=== PATIENT | female | born 1945 | race Caucasian/White ===

== ENCOUNTER → 2024-03-03 09:20 | Outpatient (REF) | payer MEDICARE, OTHER, SELFPAY ==
[2024-03-03 12:36] LABS: % Basophils 0.6 % (0-2); % Eosinophils 4.3 % (0-6); % Immature Granulocytes 0.2 % (0-0.5); % Lymphocytes 23.5 % (20.5-51.1); % Monocytes 5.9 % (1.7-9.3); % Neutrophils 65.5 % (42.2-75.2); Absolute Basophils 0.1 10^3/uL (0-0.2); Absolute Eosinophils 0.4 10^3/uL (0-0.7); Absolute Lymphocytes 2.1 10^3/uL (1.2-3.4); Absolute Monocytes 0.5 10^3/uL (0.1-0.6); Absolute Neutrophils 5.9 10^3/uL (1.4-6.5); Hematocrit 47.1 % (37.0-47.0); Mean Corp Hgb Conc. 31.8 g/dL (33.0-37.0); Mean Corpuscular Hgb 30.6 pg (27.0-31.0); Mean Corpuscular Volume 96.1 fL (81.0-99.0); Mean Platelet Volume 9.8 fL (7.4-10.4); Nucleated Red Blood Cells % 0 %; Platelet Count 248 10^3/uL (130-400); Red Cell Dist. Width 13.6 % (11.5-14.5)
[2024-03-03 13:02] LABS: ALT (SGPT) 26 U/L (0-35); AST (SGOT) 31 U/L (14-36); Albumin 4.3 g/dl (3.5-5.0); Alkaline Phosphatase 102 U/L (38-126); Blood Urea Nitrogen 28 mg/dl (7-17); Calcium 9.5 mg/dl (8.4-10.2); Carbon Dioxide 26 mmol/L (22-30); Chloride 104 mmol/L (98-107); Glucose 144 mg/dl (70-99); HDL Cholesterol 54 mg/dl; LDL Cholesterol, Calculated 65 mg/dl; Phosphorus 3.7 mg/dl (2.5-4.5); Potassium 4.4 mmol/L (3.5-5.1); Sodium 137 mmol/L (135-145); Total Bilirubin 0.5 mg/dl (0.2-1.3); Total Cholesterol 149 mg/dl (50-199); Total Protein 7.4 g/dl (6.3-8.2); Triglyceride 150 mg/dl (10-149); Uric Acid 5.3 mg/dl (2.5-6.2); Very Low Density Lipoprotein 30 mg/dl (0-30); eGFR 46.05
[2024-03-03 14:25] LABS: Glycohemoglobin (HgbA1c) 6.6 % (4.0-5.6)
[2024-03-03 16:14] LABS: Protein/creatinine Ratio 0.1; Urine Protein 10 mg/dl
[2024-03-03 16:20] LABS: Microalbumin, Random Urine <0.6 mg/dl (0.6-1.7)
[2024-03-06 08:58] LABS: Intact PTH 236.6 pg/ml (13.6-85.8)
[2024-03-07 00:21] LABS: 24 Hour Urine Total Volume Random mL; Urine Collection Length Random hr; Urine Free Kappa Light Chains 21.97 mg/L (0.00-32.90); Urine Free Lambda Light Chains 2.61 mg/L (0.00-3.79)
== END ==
LOC: HWLAB 09:20
PROVIDERS: ATTENDING PHYSICIAN Specialist; FAMILY PHYSICIAN Nurse Practitioner Adult Health
DX: N18.31 Chronic kidney disease, stage 3a (principal); E11.22 Type 2 diabetes mellitus with diabetic chronic kidney disease; E78.00 Pure hypercholesterolemia, unspecified; R80.9 Proteinuria, unspecified
CPT/HCPCS: 36415; 80053; 80061; 82043; 82570; 83036; 83521; 83970; 84100; 84156; 84550; 85025; 86335

== ENCOUNTER → 2024-05-29 09:45 | Outpatient (REF) | payer MEDICARE, OTHER, SELFPAY | LOC: DHSLP 09:45 | PROVIDERS: ATTENDING PHYSICIAN Psychiatry & Neurology Neurology; FAMILY PHYSICIAN Nurse Practitioner Adult Health | DX: G47.33 Obstructive sleep apnea (adult) (pediatric) (principal); R09.02 Hypoxemia; G47.00 Insomnia, unspecified | CPT/HCPCS: 95810 ==

== ENCOUNTER → 2024-06-21 09:05 | Outpatient (REF) | payer MEDICARE, OTHER, SELFPAY ==
[2024-06-21 12:19] LABS: TSH Reflex To Free T4 3.69 uIU/ml (0.47-4.68)
[2024-06-21 12:38] LABS: Vitamin B12 662 pg/ml (239-931)
[2024-06-22 11:49] LABS: Syphilis/T. pallidum Ab Reflex Negative (Negative)
== END ==
LOC: HWRCS 09:05
PROVIDERS: ATTENDING PHYSICIAN Internal Medicine Cardiovascular Disease; FAMILY PHYSICIAN Nurse Practitioner Adult Health; REFERRING PHYSICIAN Psychiatry & Neurology Neurology
DX: I50.32 Chronic diastolic (congestive) heart failure (principal); R41.3 Other amnesia
CPT/HCPCS: 36415; 82607; 84443; 86780; 93306

== ENCOUNTER → 2024-07-13 08:52 | Outpatient (REF) | payer MEDICARE, OTHER, SELFPAY ==
[2024-07-13 12:15] LABS: ALT (SGPT) 15 U/L (0-35); AST (SGOT) 25 U/L (14-36); Albumin 3.9 g/dl (3.5-5.0); Alkaline Phosphatase 93 U/L (38-126); Blood Urea Nitrogen 25 mg/dl (7-17); Calcium 9.3 mg/dl (8.4-10.2); Carbon Dioxide 30 mmol/L (22-30); Chloride 103 mmol/L (98-107); Glucose 125 mg/dl (70-99); HDL Cholesterol 43 mg/dl; LDL Cholesterol, Calculated 59 mg/dl; Phosphorus 3.3 mg/dl (2.5-4.5); Potassium 4.5 mmol/L (3.5-5.1); Sodium 139 mmol/L (135-145); Total Bilirubin 0.5 mg/dl (0.2-1.3); Total Cholesterol 125 mg/dl (50-199); Total Protein 6.6 g/dl (6.3-8.2); Triglyceride 115 mg/dl (10-149); Very Low Density Lipoprotein 23 mg/dl (0-30); eGFR 51.11
[2024-07-13 12:27] LABS: Vitamin D, 25-OH*** 34.3 ng/mL (30-80)
[2024-07-13 12:39] LABS: Glycohemoglobin (HgbA1c) 6.3 % (4.0-5.6)
[2024-07-13 15:11] LABS: Intact PTH 160.7 pg/ml (13.6-85.8)
== END ==
LOC: HWLAB 08:52
PROVIDERS: ATTENDING PHYSICIAN Specialist; FAMILY PHYSICIAN Nurse Practitioner Adult Health
DX: E78.00 Pure hypercholesterolemia, unspecified (principal); N18.31 Chronic kidney disease, stage 3a; E11.22 Type 2 diabetes mellitus with diabetic chronic kidney disease; I10 Essential (primary) hypertension; R80.9 Proteinuria, unspecified; R19.01 Right upper quadrant abdominal swelling, mass and lump; E87.5 Hyperkalemia; E11.9 Type 2 diabetes mellitus without complications
CPT/HCPCS: 36415; 80053; 80061; 82306; 83036; 83970; 84100

== ENCOUNTER 2024-08-06 07:26 | Day surgery (SDC) | payer MEDICARE, OTHER, SELFPAY ==
[2024-08-06] VITALS (16 sets, daily range): BP systolic 112–140; BP diastolic 45–72; BMI 38.9
[2024-08-06] MEDS: LOW STRENGTH ASPIRIN 81 MG PO (08:19)
[2024-08-06] MEDS: NSS 271 ML IV (08:22)
[2024-08-06 08:23] LABS: Hematocrit 43.3 % (37.0-47.0); Hemoglobin 14.8 g/dL (12.0-16.0); Mean Corp Hgb Conc. 34.2 g/dL (33.0-37.0); Mean Corpuscular Hgb 32.2 pg (27.0-31.0); Mean Corpuscular Volume 94.1 fL (81.0-99.0); Mean Platelet Volume 9.5 fL (7.4-10.4); Platelet Count 188 10^3/uL (130-400); Red Cell Dist. Width 13.2 % (11.5-14.5); White Blood Cell Count 8.4 10^3/uL (4.8-10.8)
[2024-08-06 08:26] LABS: Glucose - Point of Care 129 mg/dl (70-99)
--- NOTE | 2024-08-06 09:58 | ITS.CL.CATH ---
Sock Folder - Catheterization
Cardiac Catheterization
Procedure Report:
LEFT HEART CATHETERIZATION
Date of Procedure: August 06, 2024
Referring: Dr. Denis Mendes
PROCEDURES:
1. Left heart catheterization with coronary and single-plane left ventriculography
INDICATION: New cardiomyopathy and left bundle branch block
ACCESS: Right radial artery, 6 [place] sheath using ultrasound guidance
HEMODYNAMICS : (mmHg)
AO (s/d) : 114/65
LV (s/d) : 123/10
LVEDP : 13
CORONARY FINDINGS
DOMINANCE: Right
LEFT MAIN: Normal
LEFT ANTERIOR DESCENDING: The LAD arises normally from the left main and runs in the anterior interventricular groove supplying a large diagonal branch from the mid vessel. The LAD and diagonal are widely patent with only minor irregularities. The
distal LAD wraps around the apex supplying a portion of the inferior wall.
CIRCUMFLEX: The circumflex is a medium caliber nondominant vessel giving rise to 2 medium caliber obtuse marginal branches before continuing in the AV groove and terminating in a small posterolateral branch. The circumflex and obtuse marginal
branches are widely patent.
RIGHT CORONARY ARTERY: The right coronary artery is a dominant vessel and is widely patent over its course
VENTRICULOGRAPHY: Left ventriculography was performed in an NORTH projection. The digital single-plane left ventricular ejection fraction is visually estimated at 30-35% with global hypokinesis
RADIATION SUMMARY: Fluoro Time (min): 2.0, Dose (mGy): 280, DAP (Gy.cm2) : 22.4
Closure Device: TR band
CONCLUSIONS
1. Nonobstructive coronary disease
2. Dilated cardiomyopathy with estimated LVEF 30-35%
3. Reasonably compensated hemodynamics with LVEDP measuring 13 mmHg
RECOMMENDATIONS
1. Continued medical therapy for dilated nonischemic cardiomyopathy. Will continue current medical therapy. Her lisinopril dose had been increased from 2.5 to 5 mg. She developed some dizziness and the medication was decreased back to 2.5 mg
daily. She should probably begin monitoring home blood pressures with more regularity.
Copy to: Dr. Denis Mendes
== END 2024-08-06 13:30 | disposition home or self-care (01) ==
LOC: CATH 07:26
PROVIDERS: ATTENDING PHYSICIAN Internal Medicine Interventional Cardiology; FAMILY PHYSICIAN Internal Medicine; OTHER PHYSICIAN Internal Medicine Cardiovascular Disease
DX: I25.10 Atherosclerotic heart disease of native coronary artery without angina pectoris (principal); I44.7 Left bundle-branch block, unspecified; I42.0 Dilated cardiomyopathy; I13.0 Hypertensive heart and chronic kidney disease with heart failure and stage 1 through stage 4 chronic kidney disease, or unspecified chronic kidney disease; E11.22 Type 2 diabetes mellitus with diabetic chronic kidney disease; N18.30 Chronic kidney disease, stage 3 unspecified; I50.32 Chronic diastolic (congestive) heart failure; Z87.891 Personal history of nicotine dependence; Z79.84 Long term (current) use of oral hypoglycemic drugs; Z79.82 Long term (current) use of aspirin
CPT/HCPCS: 82962; 85027; 93458; C1894; Q9967

== ENCOUNTER → 2024-10-13 09:32 | Outpatient (REF) | payer MEDICARE, OTHER, SELFPAY ==
[2024-10-13 12:46] LABS: Vitamin D, 25-OH*** 24.4 ng/mL (30-80)
[2024-10-13 13:35] LABS: ALT (SGPT) 16 U/L (0-35); AST (SGOT) 27 U/L (14-36); Albumin 3.8 g/dl (3.5-5.0); Alkaline Phosphatase 80 U/L (38-126); Blood Urea Nitrogen 20 mg/dl (7-17); Calcium 9.2 mg/dl (8.4-10.2); Carbon Dioxide 30 mmol/L (22-30); Chloride 104 mmol/L (98-107); Glucose 130 mg/dl (70-99); HDL Cholesterol 39 mg/dl; LDL Cholesterol, Calculated 48 mg/dl; Potassium 3.9 mmol/L (3.5-5.1); Sodium 145 mmol/L (135-145); Total Bilirubin 0.7 mg/dl (0.2-1.3); Total Cholesterol 111 mg/dl (50-199); Total Protein 6.5 g/dl (6.3-8.2); Triglyceride 120 mg/dl (10-149); Very Low Density Lipoprotein 24 mg/dl (0-30)
[2024-10-13 14:09] LABS: Glycohemoglobin (HgbA1c) 6.3 % (4.0-5.6)
[2024-10-13 15:26] LABS: Urine Protein 10 mg/dl
[2024-10-13 15:32] LABS: Intact PTH 106.7 pg/ml (13.6-85.8)
[2024-10-13 15:42] LABS: Microalbumin, Random Urine < 0.6 mg/dl (0.6-1.7)
[2024-10-13 16:20] LABS: Protein/creatinine Ratio 0.2
== END ==
LOC: HWLAB 09:32
PROVIDERS: ATTENDING PHYSICIAN Specialist; FAMILY PHYSICIAN Nurse Practitioner Adult Health; OTHER PHYSICIAN Internal Medicine Cardiovascular Disease; REFERRING PHYSICIAN Nurse Practitioner Adult Health
DX: N18.31 Chronic kidney disease, stage 3a (principal); E11.69 Type 2 diabetes mellitus with other specified complication; I10 Essential (primary) hypertension; E78.2 Mixed hyperlipidemia; R79.89 Other specified abnormal findings of blood chemistry
CPT/HCPCS: 36415; 80053; 80061; 82043; 82306; 82570; 83036; 83521; 83970; 84156; 86335

== ENCOUNTER → 2024-10-25 09:52 | Outpatient (REF) | payer MEDICARE, OTHER, SELFPAY | LOC: HWRAD 09:52 | PROVIDERS: ATTENDING PHYSICIAN Nurse Practitioner Family; FAMILY PHYSICIAN Internal Medicine | DX: R06.02 Shortness of breath (principal) | CPT/HCPCS: 71046 ==

== ENCOUNTER → 2025-02-11 09:06 | Outpatient (REF) | payer MEDICARE, OTHER, SELFPAY ==
[2025-02-11 13:16] LABS: ALT (SGPT) 15 U/L (0-35); AST (SGOT) 20 U/L (14-36); Albumin 3.5 g/dl (3.5-5.0); Alkaline Phosphatase 88 U/L (38-126); Blood Urea Nitrogen 16 mg/dl (7-17); Calcium 8.9 mg/dl (8.4-10.2); Carbon Dioxide 31 mmol/L (22-30); Chloride 104 mmol/L (98-107); Glucose 143 mg/dl (70-99); HDL Cholesterol 47 mg/dl; LDL Cholesterol, Calculated 45 mg/dl; Potassium 3.7 mmol/L (3.5-5.1); Sodium 141 mmol/L (135-145); Total Bilirubin 0.7 mg/dl (0.2-1.3); Total Cholesterol 114 mg/dl (50-199); Total Protein 6.2 g/dl (6.3-8.2); Triglyceride 114 mg/dl (10-149); Very Low Density Lipoprotein 22 mg/dl (0-30)
[2025-02-11 13:34] LABS: Vitamin D, 25-OH*** 49.5 ng/mL (30-80)
[2025-02-11 14:28] LABS: Glycohemoglobin (HgbA1c) 6.5 % (4.0-5.6)
[2025-02-12 08:52] LABS: Intact PTH 113.1 pg/ml (13.6-85.8)
== END ==
LOC: HWLAB 09:06
PROVIDERS: ATTENDING PHYSICIAN Nurse Practitioner Adult Health
DX: E11.69 Type 2 diabetes mellitus with other specified complication (principal); I10 Essential (primary) hypertension; I50.32 Chronic diastolic (congestive) heart failure; E11.21 Type 2 diabetes mellitus with diabetic nephropathy; E78.2 Mixed hyperlipidemia; E55.9 Vitamin D deficiency, unspecified; R79.89 Other specified abnormal findings of blood chemistry
CPT/HCPCS: 36415; 80053; 80061; 82306; 83036; 83970

== ENCOUNTER → 2025-05-17 10:11 | Outpatient (REF) | payer MEDICARE, OTHER, SELFPAY | LOC: HWRCS 10:11 | PROVIDERS: ATTENDING PHYSICIAN Internal Medicine Cardiovascular Disease | DX: I50.22 Chronic systolic (congestive) heart failure (principal) | CPT/HCPCS: 93306 ==

== ENCOUNTER → 2025-05-19 08:28 | Outpatient (REF) | payer MEDICARE, OTHER, SELFPAY ==
[2025-05-19 13:14] LABS: ALT (SGPT) 12 U/L (0-35); AST (SGOT) 18 U/L (14-36); Albumin 3.8 g/dl (3.5-5.0); Alkaline Phosphatase 76 U/L (38-126); Direct Bilirubin 0.2 mg/dl (0.0-0.4); Glucose 149 mg/dl (70-99); HDL Cholesterol 44 mg/dl; LDL Cholesterol, Calculated 41 mg/dl; Total Bilirubin 0.8 mg/dl (0.2-1.3); Total Cholesterol 124 mg/dl (50-199); Total Protein 6.6 g/dl (6.3-8.2); Triglyceride 196 mg/dl (10-149); Very Low Density Lipoprotein 39 mg/dl (0-30)
[2025-05-19 13:31] LABS: Glycohemoglobin (HgbA1c) 6.5 % (4.0-5.6)
== END ==
LOC: HWLAB 08:28
PROVIDERS: ATTENDING PHYSICIAN Internal Medicine
DX: E11.9 Type 2 diabetes mellitus without complications (principal); E11.69 Type 2 diabetes mellitus with other specified complication; I10 Essential (primary) hypertension; E78.2 Mixed hyperlipidemia
CPT/HCPCS: 36415; 80061; 80076; 82947; 83036

== ENCOUNTER → 2025-06-06 09:50 | Outpatient (REF) | payer MEDICARE, OTHER, SELFPAY | LOC: HWRAD 09:50 | PROVIDERS: ATTENDING PHYSICIAN Internal Medicine | DX: M79.645 Pain in left finger(s) (principal); W19.XXXA Unspecified fall, initial encounter | CPT/HCPCS: 73110; 73140 ==

== ENCOUNTER → 2025-06-16 09:14 | Outpatient (REF) | payer MEDICARE, OTHER, SELFPAY ==
[2025-06-16 13:36] LABS: Blood Urea Nitrogen 22 mg/dl (7-17); Calcium 9.3 mg/dl (8.4-10.2); Carbon Dioxide 31 mmol/L (22-30); Chloride 104 mmol/L (98-107); Glucose 136 mg/dl (70-99); Potassium 3.9 mmol/L (3.5-5.1); Sodium 138 mmol/L (135-145); eGFR 50.80
== END ==
LOC: HWLAB 09:14
PROVIDERS: ATTENDING PHYSICIAN Physician Assistant; FAMILY PHYSICIAN Internal Medicine
DX: I50.22 Chronic systolic (congestive) heart failure (principal); I42.9 Cardiomyopathy, unspecified
CPT/HCPCS: 36415; 80048

== ENCOUNTER → 2025-07-22 12:03 | Outpatient (REF) | payer MEDICARE, OTHER, SELFPAY ==
[2025-07-22 15:03] LABS: Hematocrit 44.0 % (37.0-47.0); Hemoglobin 14.3 g/dL (12.0-16.0); Mean Corp Hgb Conc. 32.5 g/dL (33.0-37.0); Mean Corpuscular Volume 94.6 fL (81.0-99.0); Nucleated Red Blood Cells % 0 %; Platelet Count 217 10^3/uL (130-400); Red Cell Dist. Width 13.4 % (11.5-14.5)
[2025-07-22 15:08] LABS: ALT (SGPT) 18 U/L (0-35); AST (SGOT) 24 U/L (14-36); Albumin 4.0 g/dl (3.5-5.0); Alkaline Phosphatase 81 U/L (38-126); Blood Urea Nitrogen 21 mg/dl (7-17); Calcium 9.5 mg/dl (8.4-10.2); Carbon Dioxide 31 mmol/L (22-30); Chloride 104 mmol/L (98-107); Glucose 124 mg/dl (70-99); Potassium 4.6 mmol/L (3.5-5.1); Sodium 140 mmol/L (135-145); Total Protein 6.8 g/dl (6.3-8.2); eGFR 50.80
== END ==
LOC: HWLAB 12:03
PROVIDERS: ATTENDING PHYSICIAN Internal Medicine Cardiovascular Disease; FAMILY PHYSICIAN Internal Medicine
DX: E11.9 Type 2 diabetes mellitus without complications (principal); E78.2 Mixed hyperlipidemia; I44.7 Left bundle-branch block, unspecified
CPT/HCPCS: 36415; 80053; 85025

== ENCOUNTER 2025-07-29 16:59 | Inpatient (IN) | payer MEDICARE, OTHER, SELFPAY ==
[2025-07-29] VITALS (14 sets, daily range): BP systolic 82–131; BP diastolic 32–103; BMI 40.0
--- NOTE | 2025-07-29 10:21 | W.ICD.CONTRA ---
Post ICD/EXHAUST EMISSIONS INSPECTOR-D
-
History of IN?: No
LV Function
Left ventricular function study result?: Ejection Fraction </= 35%
ACEI/ARB/ARNI
Patient already on ACEI/ARB/ARNI: Yes
Beta-Bita
Patient already on Beta Bita: Yes
[2025-07-29 12:14] LABS: Glucose - Point of Care 124 mg/dl (70-99)
[2025-07-29] MEDS: VANCOCIN 530 MG IV (13:36)
--- NOTE | 2025-07-29 17:21 | ITS.CL.ICD ---
Maori Physiotherapist - ICD
Implantable Cardioverter Defibrillator
Procedure Report:
Primary Physician: Dr Wenceslao Redd
Primary Strength And Conditioning Coach: Dr Denis Mendes
Procedure Date: 07/29/2025
Procedure:
1: Implantation of FIXED ASSETS ACCOUNTANT-D utilizing LBBAP pacing lead for conduction system pacing
2: Subclavian venography
Indication/Diagnosis:
1. LBBB with baseline QRS > 120 msec
2. CHF - NYHA class 3
3. LVEF < 35%
4. Persistently reduced LVEF despite maximally tolerated GDMT > 90 days
HISTORY: Please see office H&P.
After informed consent was obtained, the patient was brought to the EP laboratory in a postabsorptive, nonsedated state. Peripheral IV access was established. Prophylactic antibiotics were administered prior to incision. Continuous ECG, blood
pressure, and pulse oximetry were initiated. Cardioversion patch electrodes were placed on the patient's chest and back. A grounding patch was applied to the skin. Sedation was administered by anesthesia.
In order to define the extrathoracic portion of the subclavian vein and exclude significant venous obstruction or anomalous anatomy, subclavian venography was performed prior to the procedure. Using the patient's left peripheral IV, contrast was
injected and images were recorded. The left subclavian vein and SVC were found to be widely patent.
The left chest was prepared and draped in a sterile fashion. A 'time out' was called and confirmed. Local anesthesia was injected in the subcutaneous tissue in the infraclavicular area. An incision was made medial to the deltopectoral groove and
parallel to the clavicle. The subcutaneous tissue was dissected the level of the prepectoral fascia. A subcutaneous pocket was created. Under fluoroscopic guidance and with the assistance of the images from the venogram, three separate
venipunctures were made using micropuncture and modified Seldinger technique. These was performed in the extrathoracic portion of the subclavian vein. Guidewires were passed. Peel-away sheaths were placed, and were used to advance the leads into
the circulation.
Using fluoroscopic guidance, the leads were positioned. The RV lead was advanced to the RV outflow tract. Ventricular ectopy was recorded. Images were taken in NORTH and MIKE views to ensure appropriate lead placement. The lead tip was subsequently
positioned in the RV apex. Adequate sensing and pacing parameters were found, and no diaphragmatic stimulation was seen with high-output pacing.
Fluoroscopy was used to determine likely anatomic site for left bundle branch pacing. The [employer]onic C315 sheath was used to deliver the Medtronic 3830 Selectsecure pacing lead with the helix exposed just exposed from the sheath tip during continuous
monitoring when pacemapping the septum during gentle clockwise rotation to obtain a paced QRS morphology of a W pattern in lead V1. Once the suspected optimal site was identified, lead deployment was performed with several rapid rotations as paced
QRS morphology was intermittently monitored until a paced QRS complex in lead V1 demonstrated development of an R wave (qR or rSR). Initial placement for the 3830-lead demonstrated variable capture despite appropriate positioning. Lead was
retracted and replaced mid septum. Unipolar pacing impedance dropped by approximately 100-200 ohms suggesting it had reached the left ventricular subendocardial. Stable VEgm injury current is present throughout lead position and at end of case.
Final unipolar pacing impedance is 1100 Ohms. Unipolar pacing threshold is stable at 1.0 V @ 0.4 ms. The patient had pre-existing left bundle branch block at baseline. Final conduction system paced QRS complex duration is 131 ms, LVAT is 69 ms, and
peak V5 -> peak V1 timing is 67 ms. The C315 sheath was slit under fluoroscopy ensuring lead position and stability.
Next, the right atrial lead was positioned in the right atrial appendage. Adequate sensing and pacing parameters were found, and no diaphragmatic stimulation was seen with high-output pacing. All sheaths were split, and the leads were secured to
the fascia with Ethibond ties.
The pocket was flushed with antibiotic solution and hemostasis was assured. The generator was connected to the leads and placed inside the pocket and sutured in place. Antibiotic envelope was used. Floseal was applied. The wound was closed with 3
running layers of absorbable suture, and steri-strips were applied. Defibrillator function testing was deferred.
Fluoroscopy was used to guide lead placement. Fluoroscopic exposure 16.8 min and 54.63 mGy. Contrast used 10 cc.
Following the procedure, the patient was taken to the recovery area in stable condition. A chest x-ray was obtained as routine post-procedure care.
IMPLANTS:
Device: Medtronic Model XJOQ8D1, SN: [id number]
RA: Medtronic, Model 5076, SN: [id number]
RV ICD: Medtronic, Model 6935 M55, SN: [id number]
RV LBBAP: Medtronic 3830, SN:[id number], Interventricular septum at LBB
DEVICE TESTING:
RA: Sensing 1.5 mV, Capture 1.25 V @0.4 msec, Impedance 779 ohms
RV (ICD lead): Sensing 14.0 mV, Capture 0.5 V @0.4 msec, Impedance 741 ohms
RV (LBBAP lead): Sensing 9.8 mV, Capture 0.5 V @0.4 msec, Impedance 760 ohms
FINAL PROGRAMMING
Migue Parameters: DDDR with 60 to 130 ppm
Tachy Parameters: Monitor zone 162�188; VF zone 188 and above with ATP plus shock
COMPLICATIONS:
There were no complications.
CONCLUSIONS:
1: Successful implantation of FIXED ASSETS ACCOUNTANT-D utilizing LBBAP pacing lead for conduction system pacing
2: Venogram
RECOMMENDATIONS:
- Admit
- Chest x-ray tonight [facility] in AM.
- IV antibiotics while the patient is admitted.
- OK to resume home medications as indicated
- Pressure dressing to be removed in AM, aquacell to remain until wound check
- Follow-up will be arranged in the office in 7-10 days post-discharge for incision check
Romeo Wilde DO, FAC, RS
Clinical Cardiac Sales And Marketing Executive
cc: Dr Wenceslao Redd; Dr Denis Mendes
--- NOTE | 2025-07-29 18:25 | PTCARENOTE ---
pt is paced on the monitor, hr in the 60s, vss. pt offers no complaints at this time. pt educated on plan of care and pt verbalized understanding. call velasco within reach.
[2025-07-29 19:08] LABS: Glucose - Point of Care 96 mg/dl (70-99)
--- NOTE | 2025-07-29 19:11 | PTCARENOTE ---
notified dr. gusman of bp os 88/50, hold metoprolol and bumex this evening.
[2025-07-29] MEDS: BUMEX PO (19:12)
[2025-07-29] MEDS: TOPROL XL PO (19:13)
--- NOTE | 2025-07-29 20:11 | PTCARENOTE ---
patient ambulated to the bathroom with a standby assist and walker- steady. no lightheadedness/dizziness. patient taken to chest xray via wheelchair.
[2025-07-29 22:19] LABS: Glucose - Point of Care 146 mg/dl (70-99)
[2025-07-29] MEDS: TYLENOL 650 MG PO (22:21)
[2025-07-29] MEDS: PRAVACHOL 80 MG PO (22:21)
[2025-07-29] MEDS: ZOLOFT 100 MG PO (22:21)
[2025-07-29] MEDS: ATIVAN 0.5 MG PO (22:21)
[2025-07-30 03:16] VITALS: BP 112/57
[2025-07-30 03:39] VITALS: BMI 40.2
--- NOTE | 2025-07-30 03:39 | PTCARENOTE ---
patient states sleeping well overnight. patient wore her own cpap-tolerated. L chest site CDI. improved L shoulder pain with Tylenol. Vpaced on tele 60s. ambulating to the bathroom with a standby assist and single point cane. steady on her feet.
reviewed activity restrictions with patient. L arm immobilizer in place. call velasco within reach. calls appropriately.
[2025-07-30 04:16] LABS: Hematocrit 38.4 % (37.0-47.0); Hemoglobin 12.9 g/dL (12.0-16.0); Mean Corp Hgb Conc. 33.6 g/dL (33.0-37.0); Mean Corpuscular Volume 94.1 fL (81.0-99.0); Platelet Count 158 10^3/uL (130-400); Red Cell Dist. Width 13.5 % (11.5-14.5)
[2025-07-30 04:38] LABS: Blood Urea Nitrogen 27 mg/dl (7-17); Calcium 8.7 mg/dl (8.4-10.2); Carbon Dioxide 30 mmol/L (22-30); Chloride 106 mmol/L (98-107); Estimated Creatinine Clearance 38 ml/min; Glucose 91 mg/dl (70-99); Potassium 4.7 mmol/L (3.5-5.1); Sodium 139 mmol/L (135-145); eGFR 45.76
--- NOTE | 2025-07-30 06:35 | PTCARENOTE ---
carelink completed per Dr. Wilde's note.
[2025-07-30 06:58] LABS: Glucose - Point of Care 101 mg/dl (70-99)
[2025-07-30 07:05] VITALS: BP 111/51
[2025-07-30] MEDS: STRIVERDI RESPIMAT 2 PUFF INH (08:13)
[2025-07-30] MEDS: BUMEX 1 MG PO (08:13)
[2025-07-30] MEDS: SPIRIVA RESPIMAT 2.5 MCG 2 PUFF INH (08:13)
[2025-07-30] MEDS: AMARYL 2 MG PO (08:14)
[2025-07-30] MEDS: ZETIA 10 MG PO (08:14)
[2025-07-30] MEDS: TOPROL XL 100 MG PO (08:14)
[2025-07-30] MEDS: ASPIR LOW (ENTERIC COATED) 81 MG PO (08:14)
[2025-07-30] MEDS: ZYLOPRIM 300 MG PO (08:15)
[2025-07-30] MEDS: TYLENOL 650 MG PO (08:26)
[2025-07-30 08:54] LABS: Glycohemoglobin (HgbA1c) 6.4 % (4.0-5.6)
--- NOTE | 2025-07-30 09:36 | W.PN.CARDCBS ---
Today's Communication / Plan
-
Okay for discharge
Impression / Plan
-
Impression:
Status post ICD implant
Left bundle branch block
Chronic HFrEF
Nonischemic cardiomyopathy
Diabetes
Vascular dementia
Plan:
Stable status post ICD implant okay for discharge
Discussed with daughter.
Progress Note - Parking Enforcement Specialist
Subjective
Date of Service: July 30, 2025:
White count 12.9, platelets okay, BUN and creatinine are 27 and 1.2, blood pressure is 111/51, pulse 63
Current meds: Reviewed
Device function/interrogation: Performed, satisfactory
ECG sinus rhythm short NC paced
Chest x-ray cardiomegaly, conduction system lead, atrial and ventricular lead, no very well
No distress, on phone to daughter, Aquacel dressing looks good, regular rate and rhythm, no obvious murmurs, lungs are clear extremities without clubbing cyanosis or edema
Objective
Labs:
07/30/25 03:30
07/30/25 03:30
Labs
Hgb 12.9 g/dL (12.0-16.0) 07/30/25 03:30
Hct 38.4 % (37.0-47.0) 07/30/25 03:30
Plt Count 158 10^3/uL (130-400) 07/30/25 03:30
Sodium 139 mmol/L (135-145) 07/30/25 03:30
Potassium 4.7 mmol/L (3.5-5.1) 07/30/25 03:30
BUN 27 mg/dl (7-17) H 07/30/25 03:30
Creatinine 1.2 mg/dL (0.6-1.0) H 07/30/25 03:30
Glucose 91 mg/dl (70-99) 07/30/25 03:30
Vital Signs and I&O:
Vital Signs
Temp Pulse Resp BP Pulse Ox
36.9 C 63 16 111/51 95
07/30/25 07:03 07/30/25 08:16 07/30/25 08:16 07/30/25 07:05 07/30/25 08:16
Vital Signs
Temp Pulse Resp BP Pulse Ox
36.9 C 63 16 111/51 95
07/30/25 07:03 07/30/25 08:16 07/30/25 08:16 07/30/25 07:05 07/30/25 08:16
Intake & Output
07/28/25 07/29/25 07/30/25 07/31/25
07:59 07:59 07:59 07:59
Intake Total 250 / 250
Output Total 500 / 500
Balance -250 / -250
Physical Exam
Physical Exam
See above
--- NOTE | 2025-07-30 09:47 | W.DS.TRANS ---
DC Summary - Social Service Director
-
Discharge Instructions:
Discharge Diagnosis/Procedures ICD implant
Diet Low Cholesterol,Diabetic, Carb Controlled
Additional Activity Activity as instructed
Driving Restrictions No driving for 1 week
Instructions:
Stand-Alone Forms: DC Inst - Implanted Device
Changes to Home Medications: No
Discharge Medications:
DC Medications w/original date entered in [employer]
allopurinol 300 mg tablet 300 mg PO DAILY 08/07/16
glimepiride 2 mg tablet 2 mg PO DAILY Diabetes 08/07/16
lorazepam 0.5 mg tablet 0.5 mg PO DAILYPRN PRN anxiety 08/07/16
pravastatin 40 mg tablet 80 mg PO HS 08/07/16
guaifenesin 600 mg tablet, extended release 12 hr (Mucus Relief ER) 600 mg PO Q12H PRN post nasal drip 05/16/21
metoprolol succinate 100 mg tablet,extended release 24 hr (Toprol XL) 100 mg PO BID 05/16/21
sertraline 50 mg tablet 100 mg PO HS 05/16/21
loratadine 10 mg tablet 10 mg PO DAILYPRN PRN allergies 05/18/21
acetaminophen 325 mg tablet 650 mg (2 x 325 mg) PO Q4HPRN PRN mild pain #30 tabs 06/14/21
albuterol 90 mcg/actuation aerosol inhaler 90 mcg inhalation Q6H 08/06/24
ezetimibe 10 mg tablet 10 mg PO DAILY 08/06/24
fluticasone propionate 50 mcg/actuation nasal spray,suspension 2 spray intranasal DAILY PRN nasal congestion 08/06/24
aspirin 81 mg tablet 81 mg PO DAILY 07/29/25
bumetanide 1 mg tablet 1 mg PO BID 07/29/25
bumetanide 1 mg tablet 1 mg PO DAILYPRN PRN edema 07/29/25
cholecalciferol (vitamin D3) 25 mcg (1,000 unit) tablet (Vitamin D3) 25 mcg PO HS 07/29/25
losartan 25 mg tablet 25 mg PO DAILY 07/29/25
multivitamin 2 tab PO DAILY 07/29/25
omega-3 fatty acids 1,000 mg PO DAILY 07/29/25
tiotropium 2.5 mcg-olodaterol 2.5 mcg/actuation mist for inhalation (Stiolto Respimat) 2 puff inhalation DAILY 07/29/25
Home Medication Changes
Pending Results: No
Total time spent discharging patient (in min): 38
[2025-07-30 09:56] VITALS: BP 122/56
[2025-07-30] MEDS: COZAAR 25 MG PO (09:58)
[2025-07-30 11:24] LABS: Glucose - Point of Care 111 mg/dl (70-99)
[2025-07-30 11:28] VITALS: BP 100/47
--- NOTE | 2025-07-30 12:18 | PTCARENOTE ---
Discharge instructions reviewed with Pt and her daughter, they expressed understanding.
== END 2025-07-30 12:39 | disposition home or self-care (01) | DRG 277 ==
LOC: IVU 16:59
PROVIDERS: Nurse Practitioner; ADMITTING PHYSICIAN Internal Medicine Cardiovascular Disease; FAMILY PHYSICIAN Internal Medicine
PROC: 0JH609Z Insertion of Cardiac Resynchronization Defibrillator Pulse Generator into Chest Subcutaneous Tissue and Fascia, Open Approach (ICD-10-PCS; 2025-07-29)
PROC: 02H63KZ Insertion of Defibrillator Lead into Right Atrium, Percutaneous Approach (ICD-10-PCS; 2025-07-29)
PROC: 02HK3KZ Insertion of Defibrillator Lead into Right Ventricle, Percutaneous Approach (ICD-10-PCS; 2025-07-29)
DX: I13.0 Hypertensive heart and chronic kidney disease with heart failure and stage 1 through stage 4 chronic kidney disease, or unspecified chronic kidney disease (principal); I50.22 Chronic systolic (congestive) heart failure; Z68.41 Body mass index [BMI] 40.0-44.9, adult; I44.7 Left bundle-branch block, unspecified; I42.8 Other cardiomyopathies; E78.5 Hyperlipidemia, unspecified; G47.33 Obstructive sleep apnea (adult) (pediatric); J44.9 Chronic obstructive pulmonary disease, unspecified; E66.9 Obesity, unspecified; N18.31 Chronic kidney disease, stage 3a; E11.22 Type 2 diabetes mellitus with diabetic chronic kidney disease; I49.3 Ventricular premature depolarization
CPT/HCPCS: 33249; 71045; 80048; 82962; 83036; 85027; 87070; 93005; 94640; C1769; C1777; C1882; C1887; C1892; C1898; Q9967

== ENCOUNTER → 2025-09-26 09:18 | Outpatient (REF) | payer MEDICARE, OTHER, SELFPAY ==
[2025-09-26 12:30] LABS: ALT (SGPT) 20 U/L (0-35); AST (SGOT) 26 U/L (14-36); Albumin 3.9 g/dl (3.5-5.0); Alkaline Phosphatase 97 U/L (38-126); Glucose 153 mg/dl (70-99); HDL Cholesterol 37 mg/dl; LDL Cholesterol, Calculated 50 mg/dl; Total Protein 7.1 g/dl (6.3-8.2); Very Low Density Lipoprotein 32 mg/dl (0-30)
[2025-09-26 14:03] LABS: Glycohemoglobin (HgbA1c) 6.4 % (4.0-5.9)
== END ==
LOC: HWLAB 09:18
PROVIDERS: ATTENDING PHYSICIAN Internal Medicine
DX: E11.9 Type 2 diabetes mellitus without complications (principal); E11.21 Type 2 diabetes mellitus with diabetic nephropathy; E66.9 Obesity, unspecified; I10 Essential (primary) hypertension; E78.2 Mixed hyperlipidemia
CPT/HCPCS: 36415; 80061; 80076; 82947; 83036